=== PATIENT | male | born 1965 ===

== ENCOUNTER → 2023-10-06 03:05 | Outpatient (CLI) | payer BC, SELFPAY ==
--- NOTE | 2023-10-06 07:54 | DI.RAD_ITS ---
Exam(s) XR CHEST 2V PA LATERAL EXAM: XR CHEST 2V PA LATERAL CLINICAL HISTORY: SOB, R06.02 TECHNIQUE: 2D digital imaging was performed of the chest. Two images were obtained. PA and lateral views were obtained. COMPARISON: No exams were available for comparison FINDINGS: MEDIASTINUM: Normal. HEART: Normal. There is an aortic valve replacement. PULMONARY VASCULATURE: Normal. LUNGS: Clear. PLEURAL SPACE: No pleural effusion or pneumothorax. BONE:Within normal limits for the patient's age. Sternal wires are in place. OTHER FINDINGS:Normal. IMPRESSION: No acute pulmonary findings. DATA REPOSITORY: RADIATION DOSE DELIVERED:
[2023-10-06 09:30] LABS: Abs Immature Grans 0.03 10^3/uL (0.0-0.06); Absolute Basophil Count 0.04 10^3/uL (0.0-0.2); Absolute Eosinophil Count 0.21 10^3/uL (0.0-0.7); Absolute Lymphocyte Count 1.82 10^3/uL (1.2-3.4); Absolute Monocyte Count 0.67 10^3/uL (0.1-0.8); Absolute Neutrophil Count 3.53 10^3/uL (1.2-6.7); Basophils % 0.6 %; Eosinophils % 3.3 %; HCT 42.2 % (40.0-50.0); Immature Grans % 0.5 %; Lymphocytes % 28.9 %; MCH 29.7 pg (27.0-33.0); MCHC 33.2 % (32.0-36.0); MCV 90 fL (80-95); MPV 9.5 fL (8.0-11.0); Monocytes % 10.6 %; Neutrophils % 56.1 %; Platelet Count 215 10^3/uL (130-400); RBC 4.71 10^6/uL (4.36-5.78); RDW 12.6 % (11.8-14.1); RDW-SD 41.8 fL
[2023-10-06 20:44] LABS: IgE <2 IU/mL (<158)
== END ==
PROVIDERS: Physician Assistant Surgical; PCP Family Medicine; Visit Provider Family Medicine
DX: R06.02 Shortness of breath (principal)
CPT/HCPCS: 71046; 82785; 85025

== ENCOUNTER 2023-10-28 05:22 | Outpatient (CLI) | payer BC, SELFPAY ==
[2023-10-28] MEDS: Methacholine 100 MG VIAL IH (12:24)
[2023-10-28] MEDS: Albuterol HFA 18 GM 200 PUFF INH IH (12:24)
[2023-10-28] MEDS: Inhaler, Assist Device 1 EACH MC (12:24)
--- NOTE | 2023-10-28 14:36 | W.PFT ---
Date of service: 10/28/23 Time of Service: 10:06 Pulmonary Function Test Result Indications: Dyspnea Interpretation Spirometry: There is no baseline airflow limitation. There was a 24% decrease in FEV1 with administration of 4.0mg/mL methacholine. Lung Volumes: Normal lung volumes Diffusion Capacity: Normal diffusion Airway Pressure: Normal airways resistance Impression Normal baseline pulmonary function with a positive methacholine challenge test. Clinical Correlation therefore is recommended.
== END 2023-10-28 05:23 | disposition home or self-care (01) ==
LOC: RT 05:22
PROVIDERS: PCP Family Medicine; Visit Provider Physician Assistant Surgical
DX: J45.909 Unspecified asthma, uncomplicated (principal)
CPT/HCPCS: 94060; 94070; 94726; 94729; 94010; J7674